=== PATIENT | female | born 1975 | race Two or more races ===

== ENCOUNTER 2019-08-24 07:38 | Outpatient (CLI) | payer OTHER ==
[2019-08-24] MEDS ORDERED: DIETHYLPROPION75 MG (10:19)
[2019-08-24] MEDS ORDERED: PROTONIX40 M1 (10:20)
== END 2019-08-24 07:44 | disposition home or self-care (01) ==
LOC: RAD 07:38
DX: K64.2 Third degree hemorrhoids (principal); R19.5 Other fecal abnormalities; R19.4 Change in bowel habit

== ENCOUNTER 2019-08-31 06:31 | Day surgery (SDC) | payer OTHER ==
[~2019-08-31 06:31] MED LIST: DIETHYLPROPION75 MG; PROTONIX40 M1
[2019-08-31] MEDS ORDERED: PERCOCET 5-3251 EACH PO (09:21)
[2019-08-31] MEDS ORDERED: RECTICARE30 GM TOP (09:22)
== END 2019-08-31 14:45 | disposition home or self-care (01) ==
LOC: CIR.AMB 06:31 → AMB-ENDOS 07:00 → CIR.AMB 07:00
DX: K64.4 Residual hemorrhoidal skin tags (principal); K60.1 Chronic anal fissure